=== PATIENT | female | born 1955 | race Caucasian/White ===

== ENCOUNTER 2023-05-25 11:58 | Outpatient (CLI) | payer MEDICARE | END 2023-05-25 11:59 | disposition home or self-care (01) | LOC: CSHRAD 11:58 | PROVIDERS: ATTEND Specialist | DX: R06.02 Shortness of breath (principal) | CPT/HCPCS: 71046 ==

== ENCOUNTER 2023-07-06 10:19 | Outpatient (CLI) | payer MEDICARE | END 2023-07-06 10:20 | disposition home or self-care (01) | LOC: CSHCP 10:19 | PROVIDERS: ATTEND Internal Medicine Critical Care Medicine | DX: J44.9 Chronic obstructive pulmonary disease, unspecified (principal) | CPT/HCPCS: 94060; 94726; 94729; 94760 ==

== ENCOUNTER 2024-02-05 13:34 | Outpatient (CLI) | payer MEDICARE | END 2024-02-05 13:35 | disposition home or self-care (01) | LOC: CSHMAMMO 13:34 | PROVIDERS: ATTEND Family Medicine Sports Medicine | DX: Z13.820 Encounter for screening for osteoporosis (principal); Z78.0 Asymptomatic menopausal state | CPT/HCPCS: 77080 ==

== ENCOUNTER 2024-02-28 12:20 | Outpatient (CLI) | payer MEDICARE | END 2024-02-28 12:21 | disposition home or self-care (01) | LOC: CSHRAD 12:20 | PROVIDERS: ATTEND Internal Medicine Rheumatology | DX: M25.541 Pain in joints of right hand (principal); M25.542 Pain in joints of left hand; M15.4 Erosive (osteo)arthritis; M19.042 Primary osteoarthritis, left hand ==